=== PATIENT | female | born 1970 | race Caucasian/White ===

== ENCOUNTER → 2016-11-11 18:51 | Outpatient (CLI) | payer BC ==
[2010-04-12 08:27] VITALS: BMI 20.8
== END | disposition home or self-care (01) ==
LOC: D.MAMMO 13:15
DX: Z12.31 Encounter for screening mammogram for malignant neoplasm of breast (principal)

== ENCOUNTER 2016-12-19 12:00 | Outpatient (CLI) | payer BC ==
[2010-04-12 08:27] VITALS: BMI 20.8
== END 2016-12-19 16:31 ==
LOC: D.MAMMO 12:00
DX: R92.8 Other abnormal and inconclusive findings on diagnostic imaging of breast (principal)

== ENCOUNTER → 2017-06-11 13:36 | Outpatient (CLI) | payer BC ==
[2010-04-12 08:27] VITALS: BMI 20.8
== END | disposition home or self-care (01) ==
LOC: D.MAMMO 10:00
DX: Z12.31 Encounter for screening mammogram for malignant neoplasm of breast (principal)

== ENCOUNTER 2018-01-19 08:00 | Outpatient (CLI) | payer BC ==
[2010-04-12 08:27] VITALS: BMI 20.8
== END 2018-01-19 23:59 | disposition home or self-care (01) ==
LOC: D.MAMMO 08:00
DX: Z12.31 Encounter for screening mammogram for malignant neoplasm of breast (principal)

== ENCOUNTER → 2020-01-03 19:00 | Outpatient (CLI) | payer BC ==
[2010-04-12 08:27] VITALS: BMI 20.8
== END | disposition home or self-care (01) ==
LOC: D.MAMMO 10:45
PROVIDERS: ATTEND Nurse Practitioner Family
DX: Z12.31 Encounter for screening mammogram for malignant neoplasm of breast (principal)